=== PATIENT | female | born 1955 | race African-American/Black ===

== ENCOUNTER 2019-10-04 09:01 | Inpatient (IN) | payer MEDICAID, OTHER ==
[~2019-10-04] VITALS: Ht 177.8 cm; Wt 72.6 kg
[2019-10-04] MEDS ORDERED: SODIUM CHLORIDE 0.9% 500 ML IV ONE (09:43)
[2019-10-04] MEDS ORDERED: LEVOFLOXACIN 500MG PREMIX 100 ML IV ONE (09:45)
[2019-10-04] MEDS ORDERED: HYDROCODONE/ACETAMINOPHEN 5/325MG TABLET PO ONE (09:45)
[2019-10-04] MEDS ORDERED: ACETAMINOPHEN 325MG TABLET PO ONE (09:45)
[2019-10-04] MEDS ORDERED: ONDANSETRON HCL 4MG/2ML INJ IV ONE (09:45)
[2019-10-04] MEDS ORDERED: ALBUTEROL 6.7GM HFA INHALER ORI ONE (10:00)
[2019-10-04 10:03] LABS: BASOPHILS % 0.3 % (0.0-2.0); HEMOGLOBIN. 13.3 g/dL (12.0-16.0); LYMPHOCYTES % 31.5 % (20.0-50.0); MEAN CORPUSCULAR HEMOGLOBIN 30.5 pg (28.0-32.0); MEAN CORPUSCULAR VOLUME 89.5 fL (81.0-99.0); MEAN PLATELET VOLUME 8.1 fl (7.4-10.4); MONOCYTES % 5.8 % (2.0-8.0); NEUTROPHILS % 62.4 % (40.0-76.0); PLATELET 118 x1000/uL (130-400); RED BLOOD CELL COUNT 4.35 mill/uL (4.2-5.4); RED CELL DISTRIBUTION WIDTH 14.3 % (11.6-14.6)
[2019-10-04 10:11] LABS: CHLORIDE 100 mEq/L (98-107)
[2019-10-04 10:18] LABS: D-DIMER 1.26 mg/L FEU (<0.50); PROTHROMBIN TIME 10.6 sec (9.6-11.0)
[2019-10-04 10:20] LABS: CREATINE KINASE 45 IU/L (26-192)
[2019-10-04] MEDS ORDERED: SODIUM CHLORIDE 0.45% 1,000 ML IV SCH (10:51)
[2019-10-04] MEDS ORDERED: MAGNESIUM/ALUMINUM HYDROXIDE/SIMETHICONE 30ML UDC PO PRN (11:00)
[2019-10-04] MEDS ORDERED: DOCUSATE SODIUM 100MG CAPSULE PO PRN (11:00)
[2019-10-04] MEDS ORDERED: GUAIFENESIN 200MG/10ML SUGAR FREE UDC PO PRN (11:00)
[2019-10-04] MEDS ORDERED: CLONIDINE 0.1MG TABLET PO PRN (11:00)
[2019-10-04] MEDS: ENOXAPARIN 40MG/0.4ML SYR SUBCUT SCH (11:00)
[2019-10-04] MEDS ORDERED: IPRATROPIUM/ALBUTEROL 0.5-3(2.5)MG/3ML NEB NEB PRN (11:00)
[2019-10-04] MEDS ORDERED: LORAZEPAM 2MG/ML CPJ IV PRN (11:00)
[2019-10-04] MEDS ORDERED: HYDROCODONE/ACETAMINOPHEN 5/325MG TABLET PO PRN (11:00)
[2019-10-04] MEDS ORDERED: AZITHROMYCIN 500 MG in DEXT 5% WATER 250 ML IV NR (11:00)
[2019-10-04] MEDS ORDERED: DIPHENHYDRAMINE 50MG/ML VIAL IV PRN (11:00)
[2019-10-04] MEDS ORDERED: ONDANSETRON HCL 4MG/2ML INJ IV PRN (11:00)
[2019-10-04] MEDS ORDERED: NA PHOS,M-B/NA PHOS,DI-BA ENEMA 118ML PR PRN (11:00)
[2019-10-04] MEDS ORDERED: POTASSIUM CHLORIDE 20MEQ TABLET SR PO ONE (11:15)
[2019-10-04] MEDS: ASPIRIN 81MG EC TABLET PO SCH (11:45)
[2019-10-04 12:11] LABS: CHLORIDE 100 mEq/L (98-107)
[2019-10-04 13:27] LABS: CLARITY URINE CLEAR (CLEAR); COLOR URINE YELLOW (YELLOW); KETONES URINE 1+ (NEGATIVE); LEUKOCYTE ESTERASE URINE NEGATIVE (NEGATIVE); NITRITE URINE NEGATIVE (NEGATIVE); OCCULT BLOOD URINE NEGATIVE (NEGATIVE); PROTEIN URINE NEGATIVE (NEGATIVE); SPECIFIC GRAVITY URINE 1.004 (1.005-1.030)
[2019-10-04] MEDS ORDERED: CEFTRIAXONE 1 G PREMIX 50 ML IV SCH (18:30)
[2019-10-04] MEDS: ACETAMINOPHEN 325MG TABLET PO PRN (20:01)
[2019-10-05] MEDS: ACETAMINOPHEN 325MG TABLET PO PRN ×2 (03:14→15:13)
[2019-10-05 05:25] LABS: CHLORIDE 104 mEq/L (98-107)
[2019-10-05 05:25] LABS: BASOPHILS % 0.3 % (0.0-2.0); EOSINOPHILS % 0.1 % (0.0-5.0); HEMOGLOBIN. 12.4 g/dL (12.0-16.0); LYMPHOCYTES % 21.4 % (20.0-50.0); MEAN CORPUSCULAR HEMOGLOBIN 30.6 pg (28.0-32.0); MEAN CORPUSCULAR VOLUME 88.7 fL (81.0-99.0); MONOCYTES % 4.6 % (2.0-8.0); NEUTROPHILS % 73.6 % (40.0-76.0); PLATELET 117 x1000/uL (130-400); RED BLOOD CELL COUNT 4.06 mill/uL (4.2-5.4); RED CELL DISTRIBUTION WIDTH 14.2 % (11.6-14.6)
[2019-10-05 05:38] LABS: LDL CHOLESTEROL 101 mg/dL (5-100)
[2019-10-05 05:39] LABS: HDL CHOLESTEROL 55 mg/dL (40-59)
[2019-10-05 05:40] LABS: T4 FREE 1.27 ng/dL (0.76-1.46)
[2019-10-05] MEDS: AZITHROMYCIN 250 MG TABLET PO SCH (10:36)
[2019-10-05] MEDS: ASPIRIN 81MG EC TABLET PO SCH (10:36)
[2019-10-05] MEDS ORDERED: AZITHROMYCIN 500 MG in DEXT 5% WATER 250 ML IV SCH (11:00)
[2019-10-05 11:30] VITALS: BP 101/59
[2019-10-05] MEDS: ENOXAPARIN 40MG/0.4ML SYR SUBCUT SCH (11:56)
[2019-10-05] MEDS: ALBUTEROL 6.7GM HFA INHALER ORI SCH ×3 (12:45→23:44)
[2019-10-05 12:50] VITALS: BP 101/59
[2019-10-05] MEDS: METHYLPREDNISOLONE SOD SUCC 40 MG/ML VIAL IV SCH ×2 (15:13→22:08)
[2019-10-05 15:30] VITALS: BP 109/54
[2019-10-05] MEDS: SODIUM CHLORIDE 0.45% 1,000 ML IV SCH (17:12)
[2019-10-05] MEDS: MORPHINE SULFATE 2 MG/ML CPJ (NOT FOR IM USE) IV PRN (17:12)
[2019-10-05] MEDS: CEFTRIAXONE 1 G PREMIX 50 ML IV SCH (18:01)
[2019-10-05] MEDS ORDERED: METH2.5T PO (18:41)
[2019-10-05 20:00] VITALS: BP 107/57
[2019-10-06] VITALS (7 sets, daily range): BP systolic 92–114; BP diastolic 42–61
[2019-10-06] MEDS: ALBUTEROL 6.7GM HFA INHALER ORI SCH ×3 (05:31→17:40)
[2019-10-06] MEDS: AZITHROMYCIN 250 MG TABLET PO SCH (09:15)
[2019-10-06] MEDS: ASPIRIN 81MG EC TABLET PO SCH (09:15)
[2019-10-06] MEDS: METHYLPREDNISOLONE SOD SUCC 40 MG/ML VIAL IV SCH ×2 (09:15→20:10)
[2019-10-06] MEDS: SODIUM CHLORIDE 0.45% 1,000 ML IV SCH (09:16)
[2019-10-06] MEDS ORDERED: METHOTREXATE SODIUM 2 . 5MG TABLET PO SCH (10:00)
[2019-10-06] MEDS: ENOXAPARIN 40MG/0.4ML SYR SUBCUT SCH (10:39)
[2019-10-06] MEDS: CEFTRIAXONE 1 G PREMIX 50 ML IV SCH (17:40)
[2019-10-06] MEDS: MORPHINE SULFATE 2 MG/ML CPJ (NOT FOR IM USE) IV PRN (23:11)
[2019-10-07] MEDS: SODIUM CHLORIDE 0.45% 1,000 ML IV SCH (00:07)
[2019-10-07 04:00] VITALS: BP 108/54
[2019-10-07] MEDS: ACETAMINOPHEN 325MG TABLET PO PRN ×2 (04:42→11:35)
[2019-10-07] MEDS: ALBUTEROL 6.7GM HFA INHALER ORI SCH ×2 (05:10)
[2019-10-07 08:00] VITALS: BP 111/63
[2019-10-07] MEDS: ASPIRIN 81MG EC TABLET PO SCH (08:00)
[2019-10-07] MEDS: METHYLPREDNISOLONE SOD SUCC 40 MG/ML VIAL IV SCH (08:00)
[2019-10-07] MEDS: AZITHROMYCIN 250 MG TABLET PO SCH (08:00)
[2019-10-07] MEDS: ENOXAPARIN 40MG/0.4ML SYR SUBCUT SCH (10:11)
[2019-10-07 11:49] VITALS: BP 120/59
[2019-10-07 15:55] VITALS: BP 112/64
[2019-10-07 16:07] VITALS: BP 112/64
== END 2019-10-07 18:25 | disposition home or self-care (01) | DRG 137 ==
LOC: ER 09:01 → 7WST 10:44 → EDBEDREQ 11:16 → ENRESERV 10-05 10:31
PROVIDERS: ADMIT Internal Medicine; ATTEND Internal Medicine
DX: U07.1 COVID-19 (principal); J96.01 Acute respiratory failure with hypoxia; D69.6 Thrombocytopenia, unspecified; J18.9 Pneumonia, unspecified organism; E86.0 Dehydration; I10 Essential (primary) hypertension; J20.8 Acute bronchitis due to other specified organisms; E87.6 Hypokalemia; R51 Headache; D72.819 Decreased white blood cell count, unspecified; M06.9 Rheumatoid arthritis, unspecified; R74.0 Nonspecific elevation of levels of transaminase and lactic acid dehydrogenase [LDH]; Z88.1 Allergy status to other antibiotic agents; Z88.2 Allergy status to sulfonamides
CPT/HCPCS: 36415; 71045; 80048; 80053; 80061; 81003; 82550; 82728; 83605; 83615; 83880; 84145; 84439; 84443; 84484; 85025; 85379; 85384; 86140; 87804; 93005; 99291; J0456; J0696; J1650; J1956; J2270; J2405; J2920; J7040; J7060; U0003